=== PATIENT | female | born 1940 | race Caucasian/White ===

== ENCOUNTER 2017-09-13 05:26 | Inpatient (IN) ==
[2017-09-15 12:26] VITALS: BP 136/62
== END 2017-09-15 14:32 | disposition home or self-care (01) | DRG 392 ==
LOC: EDBD → EDUNIT# → N.ED 05:26 → N.EDINP 07:16 → N.3E 14:06

== ENCOUNTER 2020-01-19 18:16 | Observation (INO) ==
[2020-01-19] MEDS ORDERED: NITROGLYCERIN 2% OINT 1 INCH/GM PACK TOP STA (18:59)
[2020-01-19 19:11] LABS: Basophils % 0.6 % (0.0-0.8); Eosinophils # 0.1 10*3/uL (0.0-0.87); Eosinophils % 1.1 % (0.00-10.9); Hematocrit 39.7 VOL% (35.7-47.0); Hemoglobin 13.3 GM/DL (12.0-16.0); Immature Granulocytes % 0.3 %; Immature Granulocytes Absolute 0.02 #; Lymphocytes # 1.9 10*3/uL (1.4-4.0); Lymphocytes % 27.4 % (21.3-54.2); Mean Corpuscular HGB Conc 33.5 GM/DL (32-36); Mean Corpuscular Volume 86.9 FL (87-102); Mean Platelet Volume 10.5 FL (9.6-12.0); Monocytes % 7.7 % (1.7-12.7); Neutrophils % 62.9 % (38.7-73.9); Platelet Count 141 T/CUMM (130-400); Red Blood Count 4.57 MC/CUMM (3.8-5.5); Red Cell Distribution Width 13.5 % (9.3-17.3)
[2020-01-19 19:17] LABS: INR 1.1; PT Patient Result 11.8 SECS (9.8-11.9)
[2020-01-19 19:22] LABS: Alanine Aminotransferase 18 U/L (13-56); Albumin 3.2 G/DL (3.4-5.0); Alkaline Phosphatase 95 U/L (45-117); Aspartate Amino Transferase 19 U/L (0-37); Blood Urea Nitrogen 16 MG/DL (7-18); Calcium 9.2 MG/DL (8.5-10.1); Carbon Dioxide 27 MMOL/L (21-32); Glucose 123 MG/DL (74-106); Osmolality,Calculated 284.1 MOS/KG (273-304); Potassium 3.8 MMOL/L (3.5-5.1); Sodium 142 MMOL/L (136-145); Total Protein 6.8 G/DL (6.4-8.3); Troponin I 0.025 NG/ML (0.00-0.045)
[2020-01-19 19:24] LABS: Estimated Glom Filtration Rate 0 ML/MIN
[2020-01-19] MEDS ORDERED: hydrALAZINE 20 MG/1 ML VIAL IV PRN (20:31)
[2020-01-19] MEDS ORDERED: NICOTINE 21 MG/24 HR PATCH TRANSDERM PRN (20:31)
[2020-01-19] MEDS ORDERED: DEXTROSE 50% 25 GM/50 ML VIAL IV PRN (20:31)
[2020-01-19] MEDS ORDERED: MORPHINE 4 MG/1 ML VIAL IV PRN (20:31)
[2020-01-19] MEDS ORDERED: ONDANSETRON 4 MG/2 ML VIAL IV PRN (20:31)
[2020-01-19] MEDS ORDERED: GLUCAGON 1 MG VIAL IM PRN (20:31)
[2020-01-19] MEDS ORDERED: guaiFENesin/DM ER 600-30 MG TABLET PO PRN (20:31)
[2020-01-19 20:50] LABS: Risk Ratio 2.31; VLDL CHOLESTEROL 21.2 MG/DL
[2020-01-20 01:57] LABS: Albumin 3.2 G/DL (3.4-5.0); Bilirubin,Total 0.6 MG/DL (0.2-1.0); Calcium 9.3 MG/DL (8.5-10.1); Potassium 3.9 MMOL/L (3.5-5.1); Total Protein 6.7 G/DL (6.4-8.3)
[2020-01-20] MEDS: LEVOTHYROXINE 88 MCG TABLET PO SCH (06:38)
[2020-01-20] MEDS ORDERED: diphenhydrAMINE CAP 25 MG CAPSULE PO ONE (07:30)
[2020-01-20] MEDS ORDERED: DIAZEPAM 5 MG TABLET PO ONE (07:30)
[2020-01-20] MEDS ORDERED: POTASSIUM CHLORIDE RIDER 10 MEQ in PREMIX 1 EACH IV PRN (07:38)
[2020-01-20] MEDS ORDERED: MAGNESIUM SULF RIDER 2 GM in PREMIX 1 EACH IV PRN (07:38)
[2020-01-20] MEDS ORDERED: ASPIRIN CHEW 81 MG TABLET PO ONE (07:38)
[2020-01-20] MEDS: SODIUM CHLORIDE 0.9% 1,000 ML IV SCH (08:10)
[2020-01-20] MEDS ORDERED: LIDOCAINE 1% 20 ML VIAL ONE (08:10)
[2020-01-20] MEDS ORDERED: HEPARIN/NACL 0.9% 2 UNITS/ML 1,000 ML IV ONE (08:10)
[2020-01-20] MEDS ORDERED: ASPIRIN EC 81 MG TABLET PO SCH (09:00)
[2020-01-20] MEDS ORDERED: TICAGRELOR 90 MG TABLET ONE (09:50)
[2020-01-20] MEDS ORDERED: BIVALIRUDIN 250 MG VIAL IV ONE (10:06)
[2020-01-20] MEDS ORDERED: hydrALAZINE 20 MG/1 ML VIAL ONE (10:06)
[2020-01-20] MEDS ORDERED: GLUCAGON 1 MG VIAL IM PRN (10:13)
[2020-01-20] MEDS ORDERED: DEXTROSE 50% 25 GM/50 ML VIAL IV PRN (10:13)
[2020-01-20] MEDS ORDERED: NITROGLYCERIN SL 0.4 MG TABLET SL PRN (10:15)
[2020-01-20] MEDS: TICAGRELOR 90 MG TABLET PO SCH ×2 (10:42→21:31)
[2020-01-20] MEDS: cilostazoL 50 MG TABLET PO SCH ×2 (12:50→21:32)
[2020-01-20] MEDS: ENOXAPARIN 40 MG/0.4 ML SYRINGE SUBCUT SCH (12:50)
[2020-01-20] MEDS: ISOSORBIDE MONONITRATE 60 MG TABLET PO SCH (12:50)
[2020-01-20] MEDS: lisinopriL 2.5 MG TABLET PO SCH (12:50)
[2020-01-20] MEDS: INSULIN REGULAR 100 UNIT/ML SUBCUT SCH ×2 (13:05→18:26)
[2020-01-20 16:20] LABS: Troponin I 0.186 NG/ML (0.00-0.045)
[2020-01-20] MEDS: ISOSORBIDE MONONITRATE 30 MG TABLET PO SCH (18:26)
[2020-01-20] MEDS: ATORVASTATIN 20 MG TABLET PO SCH (21:32)
[2020-01-20] MEDS: METOPROLOL SUCCINATE XL 25 MG TABLET PO SCH (21:32)
[2020-01-20] MEDS: ACETAMINOPHEN 325 MG TABLET PO PRN (21:33)
[2020-01-21] MEDS: INSULIN REGULAR 100 UNIT/ML SUBCUT SCH ×5 (01:01→23:41)
[2020-01-21] MEDS: ACETAMINOPHEN 325 MG TABLET PO PRN ×2 (01:04→21:26)
[2020-01-21] MEDS: LEVOTHYROXINE 88 MCG TABLET PO SCH (06:00)
[2020-01-21 06:12] LABS: Basophils % 0.5 % (0.0-0.8); Eosinophils % 0.5 % (0.00-10.9); Hematocrit 38.6 VOL% (35.7-47.0); Hemoglobin 12.7 GM/DL (12.0-16.0); Immature Granulocytes % 0.5 %; Immature Granulocytes Absolute 0.03 #; Lymphocytes # 1.6 10*3/uL (1.4-4.0); Lymphocytes % 26.5 % (21.3-54.2); Mean Corpuscular HGB Conc 32.9 GM/DL (32-36); Mean Corpuscular Volume 87.9 FL (87-102); Mean Platelet Volume 10.9 FL (9.6-12.0); Monocytes % 13.1 % (1.7-12.7); Neutrophils % 58.9 % (38.7-73.9); Platelet Count 135 T/CUMM (130-400); Red Blood Count 4.39 MC/CUMM (3.8-5.5); Red Cell Distribution Width 13.6 % (9.3-17.3); White Blood Count 5.9 T/CUMM (4-12)
[2020-01-21 06:32] LABS: Calcium 8.7 MG/DL (8.5-10.1); Osmolality,Calculated 286.4 MOS/KG (273-304); Potassium 4.3 MMOL/L (3.5-5.1)
[2020-01-21] MEDS: SODIUM CHLORIDE 0.9% 1,000 ML IV SCH ×2 (07:15→09:03)
[2020-01-21] MEDS ORDERED: KETOROLAC 15 MG/1 ML VIAL IV ONE (08:36)
[2020-01-21] MEDS: ASPIRIN EC 81 MG TABLET PO SCH (09:39)
[2020-01-21] MEDS: ISOSORBIDE MONONITRATE 60 MG TABLET PO SCH (09:39)
[2020-01-21] MEDS: TICAGRELOR 90 MG TABLET PO SCH ×2 (09:39→21:27)
[2020-01-21] MEDS: cilostazoL 50 MG TABLET PO SCH (09:39)
[2020-01-21] MEDS: lisinopriL 2.5 MG TABLET PO SCH (09:39)
[2020-01-21] MEDS: ENOXAPARIN 40 MG/0.4 ML SYRINGE SUBCUT SCH (09:42)
[2020-01-21 13:10] LABS: Troponin I 0.115 NG/ML (0.00-0.045)
[2020-01-21] MEDS ORDERED: KETOROLAC 10 MG TABLET PO SCH (14:30)
[2020-01-21] MEDS: PANTOPRAZOLE 40 MG VIAL IV SCH (15:44)
[2020-01-21] MEDS: LIPASE/PROTEASE/AMYLASE 4,200 UNITS CAPSULE PO SCH (16:23)
[2020-01-21] MEDS: ISOSORBIDE MONONITRATE 30 MG TABLET PO SCH (18:34)
[2020-01-21] MEDS: METOPROLOL SUCCINATE XL 25 MG TABLET PO SCH (21:27)
[2020-01-21] MEDS: ATORVASTATIN 20 MG TABLET PO SCH (21:28)
[2020-01-21] MEDS: KETOROLAC 10 MG TABLET PO SCH (23:41)
[2020-01-22] MEDS: INSULIN REGULAR 100 UNIT/ML SUBCUT SCH (05:30)
[2020-01-22] MEDS: KETOROLAC 10 MG TABLET PO SCH (05:37)
[2020-01-22 05:56] LABS: Basophils % 0.9 % (0.0-0.8); Eosinophils # 0.2 10*3/uL (0.0-0.87); Eosinophils % 3.8 % (0.00-10.9); Hematocrit 34.3 VOL% (35.7-47.0); Hemoglobin 11.4 GM/DL (12.0-16.0); Immature Granulocytes % 0.2 %; Immature Granulocytes Absolute 0.01 #; Lymphocytes # 1.4 10*3/uL (1.4-4.0); Lymphocytes % 33.9 % (21.3-54.2); Mean Corpuscular HGB Conc 33.2 GM/DL (32-36); Mean Corpuscular Volume 87.5 FL (87-102); Monocytes % 12.7 % (1.7-12.7); Neutrophils % 48.5 % (38.7-73.9); Platelet Count 109 T/CUMM (130-400); Red Blood Count 3.92 MC/CUMM (3.8-5.5); Red Cell Distribution Width 13.8 % (9.3-17.3); White Blood Count 4.3 T/CUMM (4-12)
[2020-01-22 06:29] LABS: Calcium 8.6 MG/DL (8.5-10.1); Osmolality,Calculated 285.4 MOS/KG (273-304); Potassium 3.7 MMOL/L (3.5-5.1)
[2020-01-22] MEDS: LEVOTHYROXINE 88 MCG TABLET PO SCH (06:36)
[2020-01-22] MEDS: ASPIRIN EC 81 MG TABLET PO SCH (08:18)
[2020-01-22] MEDS: ENOXAPARIN 40 MG/0.4 ML SYRINGE SUBCUT SCH (08:18)
[2020-01-22] MEDS: TICAGRELOR 90 MG TABLET PO SCH (08:18)
[2020-01-22] MEDS: ISOSORBIDE MONONITRATE 60 MG TABLET PO SCH (08:18)
[2020-01-22] MEDS: lisinopriL 2.5 MG TABLET PO SCH (08:18)
[2020-01-22] MEDS: LIPASE/PROTEASE/AMYLASE 4,200 UNITS CAPSULE PO SCH (08:18)
[2020-01-22] MEDS: PANTOPRAZOLE 40 MG VIAL IV SCH (08:19)
[2020-01-22 09:04] VITALS: BP 120/56
== END 2020-01-22 11:24 | disposition home or self-care (01) ==
LOC: EDBD → EDUNIT# → N.ED 18:16 → N.TELES 18:16 → SUATTDRO 20:49 → N.TELES 23:05
PROVIDERS: ADMIT Hospitalist; ATTEND Internal Medicine Cardiovascular Disease